=== PATIENT | female | born 1960 | race Caucasian/White ===

== ENCOUNTER 2019-07-15 09:06 | Outpatient (CLI) | payer OTHER, SELFPAY ==
--- NOTE | ~2019-07-15 | US_ITS ---
US abdomen complete DATE: 07/15/2019 10:15 INDICATION: Abdominal pain TECHNIQUE: Real-time imaging of the abdomen COMPARISON: None FINDINGS: There is hepatic steatosis. No hepatic space-occupying mass lesion is evident. There is nor mal hepatic portal venous flow direction. No pancreatic mass lesion or ductal dilatation is detected. There is an approximately 1.4 cm filling defect with shadowing in the region of the neck of the gallb ladder. Negative sonographic Ta's sign. The common bile duct measures 4.6 mm, within normal limits. The right kidney measures 9.3 cm length. The left kidney measures approximately 10.5 cm length. No re nal mass lesion or hydronephrosis is evident. Spleen measures within normal limits, up to 12 cm length. Normal caliber of the abdominal aorta. IMPRESSION: Cholelithiasis Hepatic steatosis Reviewed, dictated and finalized at [facility]. Reviewed, dictated and finalized at [facility].
== END 2019-07-15 09:07 | disposition home or self-care (01) ==
PROVIDERS: PCP Family Medicine; Visit Provider Family Medicine
DX: R79.89 Other specified abnormal findings of blood chemistry (principal); E03.9 Hypothyroidism, unspecified; K80.20 Calculus of gallbladder without cholecystitis without obstruction; K76.0 Fatty (change of) liver, not elsewhere classified; R10.9 Unspecified abdominal pain; Z79.899 Other long term (current) drug therapy
CPT/HCPCS: 76700

== ENCOUNTER 2019-12-22 10:48 | Outpatient (CLI) | payer OTHER, SELFPAY ==
--- NOTE | ~2019-12-22 | CT_ITS ---
EXAMINATION: CT abdomen pelvis wo con EXAM DATE: 12/22/2019 11:48 INDICATION: Right lower quadrant pain, intermittent for over a year. TECHNIQUE: Spiral CT of the abdomen and pelvis was performed without contrast. Axial, coronal and sag ittal images were reviewed. The dose-length product (DLP) for this examination was 1247.44 mGy-cm. The exposure was tailored according to patient size (auto mA exposure control), and iterative reconst ruction (ASIR) was used as additional dose reduction technique. There is no prior study for comparis on. FINDINGS: There is no nephrolithiasis or hydronephrosis. The uterus is anteverted and morphological ly normal. The bladder is unremarkable. The liver, spleen, adrenal glands and pancreas are unremar kable. There are gallstones within an otherwise unremarkable gallbladder. No evidence of obstructiv e biliary disease. There is no retroperitoneal or pelvic lymphadenopathy. The appendix is normal. There is moderate sigmoid colonic diverticulosis. There is no adjacent infla mmatory change to suggest diverticulitis. The stomach and small bowel are unremarkable. There is exp ected amount of colonic stool. No free intraperitoneal gas. The heart is normal in size. There a re no pericardial or pleural effusions. The lung bases are unremarkable. The bones are unremarkable . IMPRESSION: 1. No nephrolithiasis, hydronephrosis or acute intra-abdominal findings. 2. Moderate sigmoid diverticulosis Reviewed, dictated and finalized at [facility].
== END 2019-12-22 10:49 | disposition home or self-care (01) ==
PROVIDERS: PCP Family Medicine; Visit Provider Surgery
DX: R10.31 Right lower quadrant pain (principal); K57.90 Diverticulosis of intestine, part unspecified, without perforation or abscess without bleeding
CPT/HCPCS: 74176